=== PATIENT | female | born 1985 | race Caucasian/White ===

== ENCOUNTER 2017-01-20 18:13 | Emergency (ER) | payer OTHER ==
[2017-01-20 18:19] VITALS: BP 145/94; PULSE 90; TEMP 98.2; BMI 29.0
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
[2017-01-20] MEDS ORDERED: ACETAMINOPHEN 500 MG TABLET (FP) PO ONE (19:08)
[2017-01-20] MEDS ORDERED: ACETAMINOPHEN 500 MG TABLET (FP) ONE (19:16)
== END 2017-01-20 19:34 | disposition home or self-care (01) ==
LOC: JERFT 18:13
DX: S13.4XXA Sprain of ligaments of cervical spine, initial encounter (principal); G44.309 Post-traumatic headache, unspecified, not intractable; V49.49XA Driver injured in collision with other motor vehicles in traffic accident, initial encounter; Y92.488 Other paved roadways as the place of occurrence of the external cause; Y93.89 Activity, other specified; Y99.8 Other external cause status
CPT/HCPCS: 99281-25

== ENCOUNTER 2017-08-16 09:15 | Day surgery (SDC) | payer OTHER ==
[2017-08-12 14:31] VITALS: BMI 27.1
[2017-08-16] MEDS ORDERED: ceFAZolin SODIUM 1 GM VIAL IVPB ONE (10:45)
[2017-08-16] MEDS ORDERED: metroNIDAZOLE 0.75% VAGINAL GEL 70 GM TUBE ONE (10:54)
[2017-08-16] MEDS ORDERED: LIDOCAINE HCL 2% (20ML MULTI-DOSE VIAL) NR ONE (10:54)
[2017-08-16] MEDS ORDERED: IODINE/POTASSIUM IODIDE 5%/10% 14 ML BOTTLE NR ONE (11:02)
[2017-08-16] MEDS ORDERED: FERRIC SUBSULFATE 500 ML BOTTLE TP ONE (11:23)
[2017-08-16] MEDS ORDERED: metroNIDAZOLE 0.75% VAGINAL GEL 70 GM TUBE VG ONE (11:23)
[2017-08-16] MEDS ORDERED: PROMETHAZINE HCL 25 MG/1 ML VIAL IVPB PRN (11:42)
[2017-08-16] MEDS ORDERED: ONDANSETRON 4 MG/2 ML VIAL IVPUSH PRN (11:42)
[2017-08-16] MEDS ORDERED: LACTATED RINGERS SOLUTION 1,000 ML IV SCH (11:45)
[2017-08-16] MEDS ORDERED: IBUPROFEN 400 MG TABLET (FP) PO PRN (12:09)
[2017-08-16] MEDS ORDERED: ACETAMINOPHEN 325 MG TABLET (FP) PO PRN (12:09)
--- NOTE | 2017-08-16 12:36 | OP ---
DATE OF OPERATION: 08/16/2017 PREOPERATIVE DIAGNOSIS: High-grade squamous intraepithelial lesion (severe dysplasia). POSTOPERATIVE DIAGNOSIS: High-grade squamous intraepithelial lesion (severe dysplasia). PROCEDURE: Loop electrosurgical excision procedure and endocervical curetting. DESCRIPTION OF PROCEDURE: Once patient was prepped and draped under general anesthesia in lithotomy position examination revealed vagina clear, cervix closed, corpus normal, adnexa negative. During the procedure bivalve speculum applied to the vagina. Cervix was grasped with tenaculum and then at a currency of 45 a LEEP and biopsy were then removed and sent to Pathology. An endocervical curetting was done and a small amount of tissue was removed. Estimated blood loss was 10 mL. The base of the lesion was completely electrocoagulated very well and bleeding secured. Some Monsel was applied and MetroGel applied in the vagina. Patient tolerated the procedure. Was sent to recovery room in good condition. Donta [id number]
[2017-08-16 15:32] VITALS: BP 122/71; PULSE 60; TEMP 98
--- NOTE | 2017-08-22 17:16 | PATH ---
Surgical Pathology Report Patient Name: KARMEN NG [facility]. Rec. #: [id number] /Age/Gender: 1985 (Age: 32) / F Account: [id number] Location: [facility] SURGICAL Taken: 08/16/2017 Received: 08/16/2017 Reported: 08/22/2017 Physicians: Natividad Vargas M.D. Specimen(s) Received A: CERVIX LARGE LEEP CONE BIOPSIES B: ENDOCERVICAL CURETTINGS Clinical History High grade lesion intraepithelial squamous Final Diagnosis A. CERVIX, LARGE LEEP CONE BIOPSIES: CERVICAL TISSUE WITH NIRMALA 3 (CERVICAL INTRAEPITHELIAL NEOPLASIA GRADE3). NIRMALA 3 PRESENT IN DETACHED SQUAMOUS FRAGMENTS. NOTE: SURGICAL MARGIN CANNOT BE PRECISELY ASSESSED DUE TO THE DETACHED NIRMALA 3 FRAGMENTS. B. ENDOCERVICAL CURETTINGS: ENDOCERVICAL TISSUE WITH SQUAMOUS METAPLASIA. SEPARATE PROLIFERATIVE ENDOMETRIUM. Electronically Signed Светлана Latham M.D. Gross Description A. Received in formalin labeled "cervix, large LEEP cone biopsy," are 4 calderón, unoriented portions of soft tissue ranging from 0.7 x 0.3 x 0.2 cm to 2.2 x 0.9 x 0.6 cm. Some of the portions are partially surfaced by a calderón-pink mucosa. The specimens are inked blue, serially sectioned and entirely submitted in 5 cassettes as follows: 1-3-three smaller portions of tissue; 4-5-largest portion of tissue. B. Received in formalin labeled "endocervical curettings," is a 2.0 x 1.7 x 0.3 cm aggregate of calderón red soft tissue fragments admixed with blood clot. The formalin is filtered and the specimen is entirely submitted in one cassette. /08/16/2017 saudi08/16/2017
== END 2017-08-16 14:40 | disposition home or self-care (01) ==
LOC: JASU-SURG 09:15
PROVIDERS: ATTEND Obstetrics & Gynecology
PROC: 0UBC7ZX Excision of Cervix, Via Natural or Artificial Opening, Diagnostic (ICD-10-PCS; principal; 2017-08-16 11:00)
DX: D06.9 Carcinoma in situ of cervix, unspecified (principal)
CPT/HCPCS: 84703; 88305-TC; 88307-TC; 94760

== ENCOUNTER 2020-04-05 17:50 | Emergency (ER) | payer BC | END 2020-04-05 18:14 | disposition home or self-care (01) | LOC: JVIRT 17:50 | DX: Z11.52 Encounter for screening for COVID-19 (principal) | CPT/HCPCS: C9803; G2251-GT; U0003 ==

== ENCOUNTER 2020-04-10 12:30 | Emergency (ER) | payer BC | END 2020-04-10 13:33 | disposition home or self-care (01) | LOC: JVIRT 12:30 | DX: U07.1 COVID-19 (principal) | CPT/HCPCS: C9803; G2251-GT; U0003 ==